=== PATIENT | male | born 2000 | race Caucasian/White ===

== ENCOUNTER 2019-02-27 20:38 | Emergency (ER) | payer OTHER, SELFPAY ==
[2019-02-27 20:38] VITALS: BP 100/69; PULSE 90; RESP 18; TEMP 36.8; O2SAT 97; BMI 20.5
--- NOTE | 2019-02-27 20:45 | RAD_ITS ---
STUDY: X-RAY - LEFT ANKLE REASON FOR EXAM: Male, 18 years old. Twisting injury TECHNIQUE: 3 view(s) of the ankle. COMPARISON: None. FINDINGS: There is prominent soft tissue swelling over the lateral malleolus. There is no evidence of fracture or dislocation. There are no significant degenerative changes. There are no radiodense foreign bodies. RAD/Ankle min 3 Views IMPRESSION: No fracture or dislocation. Prominent soft tissue swelling over the lateral malleolus. Electronically Signed: Bony Nguyen, at 21:15 EDT Tel , Service support ,
--- NOTE | 2019-02-27 21:30 | ED.VISSUMM ---
- ER Visit Summary Date of Service: 02/27/19 Chief Complaint: Left ankle injury History of Present Illness: The patient is a 18 M who presents the emergency department with a left ankle injury. Patient states he was playing basketball when he came down and sustained an inversion injury. He is unable to bear weight without significant pain. He denies any other injuries. Physical Examination: Afebrile vital signs stable The left ankle shows significant swelling over the lateral malleolus. There is no fifth metatarsal pain no fibular head pain there is no medial malleoli or posterior malleoli or pain. Ligaments are stable. Neurovascularly intact. Test Results: Ankle films to demonstrate soft tissue swelling but no fracture Emergency Department Course and Treatment: Will use crutches until he is able to bear weight. Anuj wrap due to the swelling. Recommend rice therapy. Follow-up 10 to 14 days if not improving Impression: 1. Left ankle sprain This note was generated with [employer] dictation software. It may contain incorrect words, spelling, and punctuation that were not noted in review of the chart prior to signing ED Disposition - Plan for ED Patient: Disposition: Home or Assisted Living Instructions: Sprain, Ankle, with X-Ray Referrals: Iban Rubalcava MD [Primary Care Provider] - 10-14 Days if not better
[2019-02-27 21:53] VITALS: BP 118/71; PULSE 76; RESP 17; O2SAT 99
== END 2019-02-27 21:54 | disposition home or self-care (01) ==
LOC: ED 21:42
PROVIDERS: Emergency Provider Emergency Medicine; Family Provider Family Medicine; PCP Family Medicine
DX: S93.402A Sprain of unspecified ligament of left ankle, initial encounter (principal); X50.1XXA Overexertion from prolonged static or awkward postures, initial encounter; Y93.67 Activity, basketball; Y92.9 Unspecified place or not applicable; Y99.8 Other external cause status
CPT/HCPCS: 73610; 99283

== ENCOUNTER 2025-05-31 16:46 | Emergency (ER) | payer OTHER, SELFPAY ==
[2025-05-31 16:46] VITALS: BP 135/81; PULSE 83; RESP 15; TEMP 36.2; O2SAT 100; BMI 20.4
== END 2025-05-31 18:43 | disposition home or self-care (01) ==
PROVIDERS: Emergency Provider Emergency Medicine; Visit Provider Emergency Medicine
DX: M25.512 Pain in left shoulder (principal); M75.22 Bicipital tendinitis, left shoulder
CPT/HCPCS: 73030; 99282